=== PATIENT | male | born 1980 | race Caucasian/White ===

== ENCOUNTER 2021-08-12 01:37 | Emergency (ER) | payer OTHER, SELFPAY ==
[2021-08-12 01:55] VITALS: BP 124/77; PULSE 79; RESP 20; TEMP 36.3; O2SAT 100
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
[2021-08-12 02:33] LABS: Basophils Absolute Auto 0.1 K/mm3 (0.0-0.1); Basophils Percent Auto 0.9 % (0.2-1.2); Eosinophils Absolute Auto 0.2 K/mm3 (0-0.3); Eosinophils Percent Auto 2.7 % (0-4.4); Hematocrit 34.5 % (42.0-52.0); Hemoglobin 11.3 g/dL (14.0-18.0); Immature Granulocyte Absolute 0.01 K/mm3 (0.00-0.031); Immature Granulocyte Percent A 0.1 % (0-0.5); Lymphocytes Percent Auto 31.1 % (18.3-44.2); Mean Corpuscular HGB Conc 32.8 g/dl (32-36); Mean Corpuscular Hemoglobin 30.1 pg (26-34); Mean Corpuscular Volume 91.8 fl (80-100); Mean Platelet Volume 9.3 fl (7.4-10.4); Monocytes Absolute Auto 0.5 K/mm3 (0.1-0.6); Monocytes Percent Auto 7.7 % (2.6-8.5); Neutrophils Absolute Auto 3.9 K/mm3 (1.3-6.7); Neutrophils Percent Auto 57.5 % (45.5-73.1); Platelet Count Result 310 k/mm3 (150-375); Red Blood Count 3.76 M/mm3 (4.6-6.20); White Blood Count 6.8 K/mm3 (4.5-10.0)
[2021-08-12 02:35] LABS: Appearance Urine Clear (Clear); Bilirubin Urine 1+ (Negative); Blood Urine Negative (Negative); Color Urine Yellow (Yellow); Glucose Urine UA Negative (Negative); Ketones Urine Trace mg/dL (Negative); Leukocyte Esterase Ur Negative LEU/UL (Negative); Nitrate Urine Negative (Negative); Protein Urine Negative (Negative); Specific Grav Ur 1.025 (1.001-1.035); Urobilinogen Urine 0.2 mg/dL (<2.0); pH Urine 5.5 (5.0-9.0)
[2021-08-12 02:39] LABS: Mucus Urine Rare /lpf; RBC Urine 0-2 /hpf (0-2); Squamous Epithelial Cell Urine Rare /hpf (Few); WBC Urine 0-3 /hpf
[2021-08-12 02:44] LABS: Add Urine Microscopic? YES; Ethanol < 10 mg/dL (<10)
[2021-08-12 02:49] LABS: Alanine Aminotransferase 14 U/L (6-50); Albumin Level 3.9 g/dL (3.5-5.1); Alkaline Phosphatase 47 U/L (38-126); Aspartate Amino Transferase 41 U/L (17-59); Bilirubin,Total 0.1 mg/dL (0.2-1.3); Blood Urea Nitrogen 15 mg/dL (9-20); Calcium 8.2 mg/dL (8.4-10.2); Chloride 107 mmol/L (98-107); Estimated CRCL calculation 122 ml/min; Estimated Glomerular Filt Rate > 60; Glucose 113 mg/dL (65-110); Potassium 3.4 mmol/L (3.4-5.0); Sodium 138 mmol/L (137-145)
[2021-08-12 02:50] LABS: Amphetamine Screen Urine Negative (Negative); Barbiturate Screen Urine Negative (Negative); Benzodiazepines Screen Urine Negative (Negative); Cannabinoid Screen Urine Positive (Negative); Cocaine Screen Urine Negative (Negative); Methadone Screen Urine Negative (Negative); Opiate Screen Urine Negative (Negative); Phencyclidine Screen Urine Negative (Negative)
[2021-08-12 02:55] LABS: Anion Gap 5 mmol/L (8-16); Carbon Dioxide 26 mmol/L (22-30)
[2021-08-12 02:59] LABS: Acetaminophen < 10 ug/mL (10-30); Salicylate < 1.0 mg/dL (2-20)
[2021-08-12 03:34] LABS: SARS-CoV-2 RNA PCR Negative
--- NOTE | 2021-08-12 07:18 | PC.NURSE ---
Nupur from crisis finished evaluation. States pt will be voluntary admission for psychiatric facility.
--- NOTE | 2021-08-12 07:55 | PC.NURSE ---
Pt resting comfortably in room. Calm and cooperative. Pt remains on 1:1 observation.
--- NOTE | 2021-08-12 10:36 | PC.NURSE ---
Referral faxed to [facility], and [facility] per crisis. No further updates.
--- NOTE | 2021-08-12 11:31 | PC.NURSE ---
[facility] called to assess patient for placement, paperwork faxed and [facility] rep assessed patient via phone call.
--- NOTE | 2021-08-12 12:56 | PC.NURSE ---
Per Sarita at [facility], Dr. Acosta is deflecting patient because they can't meet his needs .
--- NOTE | 2021-08-12 13:40 | PC.NURSE ---
application refaxed to [facility]
--- NOTE | 2021-08-12 16:03 | PC.NURSE ---
Contact with [facility], questions answered and the contact states she will call back.
--- NOTE | 2021-08-12 18:39 | PC.NURSE ---
Information faxed to [facility] for seeking placement for patient.
[2021-08-12 21:00] VITALS: BP 112/73; PULSE 58; RESP 18; TEMP 36.8; O2SAT 98
[2021-08-12] MEDS: hydrOXYzine HCL 25 MG TABLET PO (21:57)
[2021-08-12] MEDS: DIVALPROEX SODIUM DR 250 MG TABEC 500 MG PO (22:47)
--- NOTE | 2021-08-12 23:26 | PC.NURSE ---
Intake paper work was faxed to [facility] per recommendation from Gayathri. Patient accepted at [facility] per Meera RN, pt is accepted and can be sent over after 7am.
--- NOTE | 2021-08-12 23:51 | PC.NURSE ---
called [facility] to get an accepting physician's name. they state to call back in the morning to get that information.
--- NOTE | 2021-08-13 02:29 | PC.NURSE ---
Called [facility] again for accepting physician name. Spoke with Rosalina and she states the accepting physician is Dr. Song. Pt can be sent to [facility] after 7am today.
--- NOTE | 2021-08-13 02:35 | PC.NURSE ---
called [facility] to request transport at 7 am. Waiting for supervisor spinning approval.
--- NOTE | 2021-08-13 03:18 | PC.NURSE ---
[facility] called back with a 1430 ETA. Called [facility] to request transport. Not available until possible 1000 when the crew changes. Advised to call back at 1000
--- NOTE | 2021-08-13 07:46 | PC.NURSE ---
0730- unable to get transport pickup by [facility] until 1430 or later today. RN called [facility] and spoke with Nisa in intake about the late draft roller picker time, asked if HRT could be used. HRT code [id number], and phone #[phone], to schedule transport [phone]. RN spoke with Andres, notified that Nisa requested an arrival at [facility] about 11a-12p. Andres states that the ETA arrival for contract driver would be about 2-2.5hrs. notified [facility] of transport arrangements.
[2021-08-13 07:58] VITALS: BP 108/75; PULSE 65; RESP 18; TEMP 36.5; O2SAT 99
[2021-08-13] MEDS: DIVALPROEX SODIUM DR 250 MG TABEC 500 MG PO (08:48)
== END 2021-08-13 10:22 ==
PROVIDERS: Emergency Medicine; Physician Assistant; Emergency Provider Emergency Medicine
DX: F32.9 Major depressive disorder, single episode, unspecified (principal); R45.851 Suicidal ideations; Z20.822 Contact with and (suspected) exposure to COVID-19; F41.9 Anxiety disorder, unspecified
CPT/HCPCS: 36415; 80053; 80307; 81001; 84443; 85025; 99284; A9270; C9803; U0003; U0005

== ENCOUNTER 2022-05-07 10:19 | Emergency (ER) | payer OTHER, SELFPAY ==
--- NOTE | ~2022-05-07 | XR_ITS ---
EXAMINATION: XR chest 1V portable DATE: 05/07/2022 10:44 INDICATION: Cough. TECHNIQUE: A single frontal view of the chest was obtained on 2 radiographs. COMPARISON: None. FINDINGS: Calcified pulmonary nodules are consistent with old granulomatous disease. No pleural effus ion or pneumothorax. The heart size is normal. There is a right internal jugular port with tip at sup erior cavoatrial junction. IMPRESSION: 1. No acute cardiopulmonary disease. Reviewed, dictated and finalized at location A.
[2022-05-07 10:44] LABS: Eosinophils Percent Auto 0.2 % (0-4.4); Hematocrit 44.9 % (42.0-52.0); Hemoglobin 14.9 g/dL (14.0-18.0); Immature Granulocyte Absolute 0.02 K/mm3 (0.00-0.031); Immature Granulocyte Percent A 0.5 % (0-0.5); Lymphocytes Absolute Auto 1.38 K/mm3 (0.9-3.2); Lymphocytes Percent Auto 31.9 % (18.3-44.2); Mean Corpuscular HGB Conc 33.2 g/dl (32-36); Mean Corpuscular Hemoglobin 31.4 pg (26-34); Mean Corpuscular Volume 94.7 fl (80-100); Mean Platelet Volume 9.9 fl (7.4-10.4); Monocytes Absolute Auto 0.3 K/mm3 (0.1-0.6); Monocytes Percent Auto 7.9 % (2.6-8.5); Neutrophils Absolute Auto 2.6 K/mm3 (1.3-6.7); Neutrophils Percent Auto 59.5 % (45.5-73.1); Platelet Count Result 196 k/mm3 (150-375); Red Blood Count 4.74 M/mm3 (4.6-6.20); Red Cell Distribution Width 15.2 % (11.5-14.5); White Blood Count 4.3 K/mm3 (4.5-10.0)
[2022-05-07 10:45] VITALS: BP 137/91; PULSE 95; RESP 15; TEMP 36.7; O2SAT 98
[2022-05-07 11:00] LABS: Anion Gap 7 mmol/L (8-16); Blood Urea Nitrogen 10 mg/dL (9-20); Calcium 9.2 mg/dL (8.4-10.2); Carbon Dioxide 28 mmol/L (22-30); Chloride 106 mmol/L (98-107); Estimated CRCL calculation 121 ml/min; Estimated Glomerular Filt Rate > 60; Glucose 107 mg/dL (65-110); Potassium 3.9 mmol/L (3.4-5.0); Sodium 141 mmol/L (137-145)
[2022-05-07 11:22] LABS: Influenza A QL RT-PCR Negative (Negative); Influenza B QL RT-PCR Negative (Negative); SARS-CoV-2 RNA PCR Positive
--- NOTE | 2022-05-07 11:27 | ED.GENADULT ---
HPI - General Adult General Chief complaint: Upper Respiratory Infection Stated complaint: possible covid/Chemo patient Time Seen by Provider: 05/07/22 10:22 Related Data Home Medications Medication Instructions Recorded Confirmed aripiprazole 5 mg PO DAILY 08/12/21 08/12/21 divalproex 500 mg PO BID 08/12/21 08/12/21 doxycycline hyclate 100 mg capsule 100 mg PO BID 08/12/21 08/12/21 fluoxetine 20 mg PO DAILY 08/12/21 08/12/21 hydroxyzine pamoate 25 mg PO 08/12/21 Allergies Allergy/AdvReac Type Severity Reaction Status Date / Time No Known Allergies Allergy Verified 05/07/22 10:50 [facility] Past Medical History Medical History (Updated 05/07/22 @ 11:47 by Darryl Lombardi MD) Anxiety Bipolar disorder Colon cancer Depression Port-A-Cath in place Surgical History Surgical History (Updated 08/12/21 @ 02:59 by Chanda Stpehens PA-C) History of surgical biopsy Social History Social History (Updated 08/12/21 @ 02:59 by Chanda Stephens PA-C) Smoking status: Current every day smoker Substance use type: marijuana Exam Narrative: GENERAL: Well-appearing, well-nourished, and in no acute distress. HEAD: Normocephalic, atraumatic. CHEST: Clear to auscultation. No respiratory distress. HEART: Regular rate and rhythm. Normal peripheral pulses. ABDOMEN: Soft, nontender, nondistended. EXTREMITIES: Normal range of motion. No edema. SKIN: Warm, dry, no rash. NEURO: Alert and oriented x3. PSYCH: Normal mood and affect. Course Course Emergency Course: Patient informed of lab and imaging results. Discussed treatment plan which includes emergency use authorized Paxlovid given immunocompromise and current COVID infection. Recommend he contact his oncologist to arrange follow-up. Vital Signs Vital signs: Vital Signs Temperature 98.1 F 05/07/22 10:45 Pulse Rate 95 05/07/22 10:45 Respiratory Rate 15 05/07/22 10:45 Blood Pressure 137/91 H 05/07/22 10:45 Pulse Oximetry 98 05/07/22 10:45 Oxygen Delivery Room Air 05/07/22 10:45 Temperature 98.1 F 05/07/22 10:45 Pulse Rate 95 05/07/22 10:45 Respiratory Rate 15 05/07/22 10:45 Blood Pressure 137/91 H 05/07/22 10:45 Pulse Oximetry 98 05/07/22 10:45 Oxygen Delivery Room Air 05/07/22 10:48 Fraction of Inspired Oxygen 98 05/07/22 10:48 Medical Decision Making Vital Signs Vital Signs: Vital Signs Temperature 98.1 F 05/07/22 10:45 Pulse Rate 95 05/07/22 10:45 Respiratory Rate 15 05/07/22 10:45 Blood Pressure 137/91 H 05/07/22 10:45 Pulse Oximetry 98 05/07/22 10:45 Oxygen Delivery Room Air 05/07/22 10:45 Temperature 98.1 F 05/07/22 10:45 Pulse Rate 95 05/07/22 10:45 Respiratory Rate 15 05/07/22 10:45 Blood Pressure 137/91 H 05/07/22 10:45 Pulse Oximetry 98 05/07/22 10:45 Oxygen Delivery Room Air 05/07/22 10:48 Fraction of Inspired Oxygen 98 05/07/22 10:48 Lab Data 05/07/22 10:35 05/07/22 10:35 Labs: Lab Results 05/07/22 05/07/22 05/07/22 Range/Units 10:35 10:35 10:35 WBC 4.3 L (4.5-10.0) K/mm3 RBC 4.74 (4.6-6.20) M/mm3 Hgb 14.9 D (14.0-18.0) g/dL Hct 44.9 (42.0-52.0) % MCV 94.7 (80-100) fl MCH 31.4 (26-34) pg MCHC 33.2 (32-36) g/dl RDW 15.2 H (11.5-14.5) % Plt Count 196 (150-375) k/mm3 MPV 9.9 (7.4-10.4) fl Immature Gran % (Auto) 0.5 (0-0.5) % Neut % (Auto) 59.5 (45.5-73.1) % Lymph % (Auto) 31.9 (18.3-44.2) % [place]ette % (Auto) 7.9 (2.6-8.5) % Eos % (Auto) 0.2 (0-4.4) % Baso % (Auto) 0.0 L (0.2-1.2) % Lymph # (Auto) 1.38 (0.9-3.2) K/mm3 Labette # (Auto) 0.3 (0.1-0.6) K/mm3 Eos # (Auto) 0.0 (0-0.3) K/mm3 Baso # (Auto) 0.0 (0.0-0.1) K/mm3 Abs Immat Gran (auto) 0.02 (0.00-0.031) K/mm3 Absolute Neuts (auto) 2.6 (1.3-6.7) K/mm3 Absolute Nucleated RBC 0.0 (0.0-0.012) K/mm3 Nucleated RBC % 0.0 (0.0-0.2) %
[2022-05-07 11:52] VITALS: PULSE 73; RESP 18; O2SAT 97
== END 2022-05-07 11:58 | disposition home or self-care (01) ==
PROVIDERS: Emergency Provider Emergency Medicine
DX: U07.1 COVID-19 (principal); F41.9 Anxiety disorder, unspecified; F32.A Depression, unspecified
CPT/HCPCS: 36415; 71045; 80048; 85025; 87636; 99283